=== PATIENT | male | born 1995 | race Caucasian/White ===

== ENCOUNTER 2017-07-09 23:10 | Emergency (ER) | payer OTHER ==
[2017-07-10] MEDS ORDERED: ACETAMINOPHEN 325 MG TABLET PO ONE (00:58)
--- NOTE | 2017-07-10 02:24 | ER Document Report ---
ED Extremity Problem, Lower - General Chief Complaint: Foot Injury Stated Complaint: FOOT INJURY Time Seen by Provider: 07/10/17 00:58 TRAVEL OUTSIDE OF THE [place] IN LAST 30 DAYS: No - HPI Patient complains to provider of: Injury - ran over his left foot two days ago, pain in big toe Location: Great Toe Where: Home Onset/Duration: Sudden, Persistent Recent injury: Yes Associated symptoms: denies: Chest pain, Chills, Dizzy, Fainting, Fever, [place] a crack, [place] a pop, Hurts to breath, Painful ambulation, Rapid heart rate, Seizure, Short of breath, Sweaty, Unable to bear weight, Weak, Other Exacerbated by: Walking Past Medical History - Social History Smoking Status: Unknown if Ever Smoked Drug Abuse: None Family History: Reviewed & Not Pertinent Patient has suicidal ideation: No Patient has homicidal ideation: No Renal/ Medical History: Denies: Hx Peritoneal Dialysis Past Surgical History: Reports: Hx Orthopedic Surgery - Immunizations Hx Diphtheria, Pertussis, Tetanus Vaccination: Yes Review of Systems - Review of Systems Constitutional: No symptoms reported Musculoskeletal: See HPI -: Yes All other systems reviewed and negative Physical Exam - Vital signs Vitals: Temp Pulse Resp BP Pulse Ox 98.1 F 59 L 16 124/53 L 97 07/09/17 23:20 07/09/17 23:20 07/09/17 23:20 07/09/17 23:20 07/09/17 23:20 - Notes Notes: PHYSICAL EXAM GENERAL: Alert, interacts well. EXTREMITIES: Moves all 4 extremities spontaneously. No edema, radial and dorsalis pedis pulses 2/4 bilaterally. No cyanosis. NEUROLOGICAL: Alert and oriented x4. Normal speech. PSYCH: Normal affect, normal mood. SKIN: Warm, dry, normal turgor. No rashes or lesions noted. Course - Re-evaluation Re-evalutation: 07/10/17 02:21 Patient is a 21-year-old male is hemodynamic stable, no acute distress afebrile. Able to ambulate without any difficulty. No signs of acute infection , deformity. Patient offered crutches instructed for rest, ice and elevation. Patient put on light duty. Will follow up with primary care. - Vital Signs Vital signs: Temp Pulse Resp BP Pulse Ox 98.1 F 59 L 16 124/53 L 97 07/09/17 23:20 07/09/17 23:20 07/09/17 23:20 07/09/17 23:20 07/09/17 23:20 - Diagnostic Test Radiology reviewed: Image reviewed Discharge - Discharge Clinical Impression: Foot pain Qualifiers: Laterality: left Qualified Code(s): M79.672 - Pain in left foot Condition: Good Disposition: HOME, SELF-CARE Instructions: Use of Crutches ([facility]), Use of Dofa-Ujf-Vuzidwb Ibuprofen ([facility]) Additional Instructions: Fractured Toe You have fractured your toe. This fracture doesn't need a cast or splint. A toe fracture will heal in about three weeks. Usually, the fractured toe is taped to the next toe. The second toe acts as a moving splint to protect the broken one. Ice and elevation help during the first 48 hours. You may need crutches at first if walking is painful. When you begin walking, be careful NOT to do things that hurt. If weight bearing is not comfortable within a few days, you may require a special shoe, walking boot, or cast. Call the doctor or return at once if severe swelling, severe pain, or numbness develop in the toe, or if you suspect you may have re-injured it. Forms: Special Work Note
[2017-07-10 02:55] VITALS: BP 121/65
--- NOTE | 2017-07-14 12:21 | RADIOLOGY REPORT (SQ) ---
EXAM DESCRIPTION: FOOT LEFT COMPLETE COMPLETED DATE/TIME: 07/10/2017 1:13 am REASON FOR STUDY: CRUSHING INJURY COMPARISON: None. LIMITATIONS: None. FINDINGS: Three views of the left foot show bones, joints, and soft tissues to appear intact. IMPRESSION: Normal left foot. TECHNICAL DOCUMENTATION: JOB ID: [id number] [employer]- All Rights Reserved
== END 2017-07-10 02:55 | disposition home or self-care (01) ==
LOC: ER 23:10
DX: M79.672 Pain in left foot (principal)
CPT/HCPCS: 99283